=== PATIENT | female | born 1930 | race Two or more races ===

== ENCOUNTER 2017-09-23 19:16 | Inpatient (IN) | payer MEDICARE, OTHER ==
[2017-09-23 19:45] LABS: ADD MAN DIFF? NO
[2017-09-23 19:51] LABS: BASO # 0.1 x10^3/uL (0.0-0.2); BASO % 1 % (0-3); EOS # 0.2 x10^3/uL (0.0-0.7); EOS % 2 % (0-3); LYMPH % 10 % (24-48); MEAN CORPUSCULAR HEMOGLOBIN 31 pg (25-35); MEAN CORPUSCULAR HGB CONC 35 g/dL (31-37); MEAN CORPUSCULAR VOLUME 88 fL (79-100); MONO # 0.4 x10^3/uL (0.0-1.1); MONO % 5 % (0-9); NEUT # 8.1 x10^3uL (1.8-7.7); NEUT % 83 % (31-73); PLATELET COUNT 290 x10^3/uL (140-400); RED BLOOD COUNT 2.24 x10^6/uL (3.50-5.40); RED CELL DISTRIBUTION WIDTH 13.9 % (11.5-14.5); WHITE BLOOD COUNT 9.7 x10^3/uL (4.0-11.0)
[2017-09-23 19:54] LABS: HEMATOCRIT 19.8 % (36.0-47.0); HEMOGLOBIN 6.8 g/dL (12.0-15.5)
[2017-09-23 19:57] LABS: ANION GAP 9 (6-14); BLOOD UREA NITROGEN 57 mg/dL (7-20); BUN/CREATININE RATIO 30 (6-20); CALCIUM 7.6 mg/dL (8.5-10.1); CARBON DIOXIDE 25 mmol/L (21-32); CHLORIDE 104 mmol/L (98-107); CREATININE 1.9 mg/dL (0.6-1.0); GFR 25.1; GLUCOSE 251 mg/dL (70-99); POTASSIUM 4.3 mmol/L (3.5-5.1); SODIUM 138 mmol/L (136-145)
[2017-09-23 20:02] LABS: INR 2.4 (0.8-1.1); PROTHROMBIN TIME PATIENT 25.7 SEC (11.7-14.0)
[2017-09-23 20:03] LABS: ALBUMIN 2.2 g/dL (3.4-5.0); ALBUMIN/GLOBULIN RATIO 0.6 (1.0-1.7); ALK PHOS 106 U/L (46-116); ALT (SGPT) 17 U/L (14-59); AST (SGOT) 19 U/L (15-37); MAGNESIUM 2.1 mg/dL (1.8-2.4); TOTAL BILIRUBIN 0.4 mg/dL (0.2-1.0); TOTAL PROTEIN 5.8 g/dL (6.4-8.2)
[2017-09-23 20:09] LABS: NT-PRO BNP 13984 pg/mL (0-449)
[2017-09-23] MEDS ORDERED: ACETAMINOPHEN 325 MG TABLET. PO ×2 (20:30→22:30)
[2017-09-23 20:32] LABS: FECAL OB PT POSITIVE (NEG); NEG OBC FOB NEG; POS OBC FOB POS
[2017-09-23 20:33] LABS: BILIRUBIN,URINE NEGATIVE (NEG); CLARITY,URINE CLOUDY; COLOR,URINE YELLOW; GLUCOSE,URINE NEGATIVE (NEG); NITRITE,URINE NEGATIVE (NEG); PH,URINE 5.5; PROTEIN,URINE 100 mg/dL (NEG-TRACE); UROBILINOGEN,URINE 0.2 mg/dL (0.2 mg/dL)
[2017-09-23 20:41] LABS: BACTERIA,URINE FEW /HPF (0-FEW); HYALINE CASTS, URINE OCCASIONAL /HPF; RBC,URINE OCC /HPF (0-2)
[2017-09-23 22:24] LABS: POC GLUCOSE 191 mg/dL (70-99)
[2017-09-23] MEDS ORDERED: NITROGLYCERIN SUBLINGUAL 0.4 MG BOTTLE OF 25. SL (22:30)
[2017-09-23] MEDS ORDERED: DEXTROSE 50% 25 GM / 50ML DISP.SYRIN. IV (22:45)
[2017-09-23] MEDS: PREGABALIN 50 MG CAPSULE PO (23:51)
[2017-09-23] MEDS: AMITRIPTYLINE HCL 50 MG TABLET PO (23:51)
[2017-09-23] MEDS: cefTRIAXone IV Push 1 GM VIAL. IVP (23:52)
[2017-09-24] MEDS: FUROSEMIDE 40 MG/4 ML VIAL. IVP (00:07)
[2017-09-24 01:03] LABS: IMMEDIATE SPIN CROSSMATCH 1 2
[2017-09-24] MEDS: FUROSEMIDE 20 MG/2 ML VIAL. IVP ×4 (04:08→21:02)
[2017-09-24] MEDS: LEVOTHYROXINE 50 MCG TABLET PO (06:29)
[2017-09-24] MEDS ORDERED: CARVEDILOL 6.25 MG TABLET. PO (08:00)
[2017-09-24 08:12] LABS: ADD MAN DIFF? NO
[2017-09-24 08:24] LABS: BASO % 1 % (0-3); EOS # 0.3 x10^3/uL (0.0-0.7); EOS % 3 % (0-3); HEMATOCRIT 28.6 % (36.0-47.0); LYMPH # 1.3 x10^3/uL (1.0-4.8); LYMPH % 14 % (24-48); MEAN CORPUSCULAR HEMOGLOBIN 31 pg (25-35); MEAN CORPUSCULAR HGB CONC 35 g/dL (31-37); MEAN CORPUSCULAR VOLUME 89 fL (79-100); MONO # 0.5 x10^3/uL (0.0-1.1); MONO % 5 % (0-9); NEUT # 7.2 x10^3uL (1.8-7.7); NEUT % 77 % (31-73); PLATELET COUNT 293 x10^3/uL (140-400); RED BLOOD COUNT 3.23 x10^6/uL (3.50-5.40); RED CELL DISTRIBUTION WIDTH 13.7 % (11.5-14.5); WHITE BLOOD COUNT 9.2 x10^3/uL (4.0-11.0)
[2017-09-24] MEDS: LACTOBACILLUS RHAMNOSUS GG 1 CAPSULE. PO ×2 (08:24→21:01)
[2017-09-24] MEDS: FERROUS SULFATE 325 MG TABLET. PO (08:24)
[2017-09-24] MEDS: POTASSIUM CHLORIDE 20 MEQ TABLET.ER. PO (08:24)
[2017-09-24] MEDS: CALCIUM CARB/VIT D3 500/200 TABLET. PO ×2 (08:24→17:46)
[2017-09-24] MEDS: PREGABALIN 50 MG CAPSULE PO ×2 (08:25→21:01)
[2017-09-24] MEDS: ANASTROZOLE 1 MG TABLET PO (08:26)
[2017-09-24] MEDS: CLOPIDOGREL BISULFATE 75 MG TABLET PO (08:28)
[2017-09-24] MEDS: ASPIRIN ENTERIC COATED 81 MG TABLET.DR. PO (08:28)
[2017-09-24 08:47] LABS: MAGNESIUM 2.2 mg/dL (1.8-2.4)
[2017-09-24] MEDS: INSULIN LISPRO 300 UNITS/3 ML INSULN.PEN. SQ ×6 (08:49→17:55)
[2017-09-24 08:54] LABS: ANION GAP 9 (6-14); BLOOD UREA NITROGEN 53 mg/dL (7-20); CALCIUM 7.7 mg/dL (8.5-10.1); CARBON DIOXIDE 26 mmol/L (21-32); CHLORIDE 103 mmol/L (98-107); CHOLESTEROL 117 mg/dL (0-200); CREATININE 1.5 mg/dL (0.6-1.0); GLUCOSE 214 mg/dL (70-99); HDLC 34 mg/dL (40-60); LDLC 51 mg/dL (0-100); NON-HDL CHOLESTEROL 83 mg/dL (0-129); POTASSIUM 4.6 mmol/L (3.5-5.1); SODIUM 138 mmol/L (136-145); TRIGLYCERIDES 162 mg/dL (0-150); VLDLC 32 mg/dL (0-40)
[2017-09-24 08:55] LABS: CHOLESTEROL/HDL RATIO 3.4
[2017-09-24 08:59] LABS: TROPONINI 0.138 ng/mL (0.000-0.055)
[2017-09-24] MEDS ORDERED: DOCUSATE SODIUM 100 MG CAPSULE. PO (09:00)
[2017-09-24] MEDS: INSULIN GLARGINE 300 UNITS/3 ML INSULN.PEN. SQ (09:00)
[2017-09-24] MEDS ORDERED: BUMETANIDE 1 MG TABLET. PO (09:00)
[2017-09-24 09:21] LABS: POC GLUCOSE 205 mg/dL (70-99)
[2017-09-24] MEDS: METOPROLOL TART IMMED RELEASE 25 MG TABLET. PO (09:53)
[2017-09-24] MEDS: LOSARTAN POTASSIUM 50 MG TABLET. PO (09:54)
[2017-09-24] MEDS: ISOSORBIDE MONONITRATE ER 30 MG TAB.ER.24H PO (09:55)
[2017-09-24 10:58] LABS: THYROID STIM HORMONE (TSH) 8.585 uIU/mL (0.358-3.74)
[2017-09-24] MEDS: TAMSULOSIN 0.4 MG CAP.ER.24H. PO (12:21)
[2017-09-24] MEDS: LINAGLIPTIN 5 MG TABLET PO (12:22)
[2017-09-24] MEDS: FOLIC ACID 1 MG TABLET. PO (12:22)
[2017-09-24] MEDS: SENNOSIDES/DOCUSATE 8.6/50MG TABLET. PO (12:22)
[2017-09-24] MEDS: ASCORBIC ACID 500 MG TABLET PO ×2 (12:22→21:01)
[2017-09-24] MEDS: VITAMIN B12,B9,B6 COMPLEX 1 TABLET. PO (12:22)
[2017-09-24 12:36] LABS: POC GLUCOSE 179 mg/dL (70-99)
[2017-09-24 14:14] LABS: TROPONINI 0.148 ng/mL (0.000-0.055)
[2017-09-24] MEDS: WARFARIN 2.5 MG TABLET. PO (16:31)
[2017-09-24 17:41] LABS: POC GLUCOSE 167 mg/dL (70-99)
[2017-09-24] MEDS: POTASSIUM CHLORIDE 10 MEQ TABLET.ER. PO (17:46)
[2017-09-24] MEDS: AMITRIPTYLINE HCL 50 MG TABLET PO (21:01)
[2017-09-24] MEDS: ATORVASTATIN CALCIUM 20 MG TABLET PO (21:01)
[2017-09-24] MEDS: FAMOTIDINE 20 MG TABLET. PO (21:01)
[2017-09-24 21:02] LABS: POC GLUCOSE 99 mg/dL (70-99)
[2017-09-24] MEDS: cefTRIAXone IV Push 1 GM VIAL. IVP (23:00)
[2017-09-25] MEDS: LEVOTHYROXINE 50 MCG TABLET PO (06:00)
[2017-09-25 07:54] LABS: POC GLUCOSE 138 mg/dL (70-99)
[2017-09-25] MEDS: INSULIN LISPRO 300 UNITS/3 ML INSULN.PEN. SQ ×6 (08:00→16:48)
[2017-09-25 08:18] LABS: ADD MAN DIFF? NO
[2017-09-25 08:24] LABS: BASO # 0.1 x10^3/uL (0.0-0.2); BASO % 1 % (0-3); EOS # 0.3 x10^3/uL (0.0-0.7); EOS % 3 % (0-3); HEMATOCRIT 28.2 % (36.0-47.0); HEMOGLOBIN 9.8 g/dL (12.0-15.5); LYMPH # 1.2 x10^3/uL (1.0-4.8); LYMPH % 12 % (24-48); MEAN CORPUSCULAR HEMOGLOBIN 31 pg (25-35); MEAN CORPUSCULAR HGB CONC 35 g/dL (31-37); MEAN CORPUSCULAR VOLUME 89 fL (79-100); MONO # 0.5 x10^3/uL (0.0-1.1); MONO % 5 % (0-9); NEUT # 8.3 x10^3uL (1.8-7.7); NEUT % 80 % (31-73); PLATELET COUNT 306 x10^3/uL (140-400); RED BLOOD COUNT 3.16 x10^6/uL (3.50-5.40); RED CELL DISTRIBUTION WIDTH 14.3 % (11.5-14.5); WHITE BLOOD COUNT 10.4 x10^3/uL (4.0-11.0)
[2017-09-25 08:32] LABS: INR 2.1 (0.8-1.1); PROTHROMBIN TIME PATIENT 22.7 SEC (11.7-14.0)
[2017-09-25 08:44] LABS: ANION GAP 5 (6-14); BLOOD UREA NITROGEN 47 mg/dL (7-20); CALCIUM 8.1 mg/dL (8.5-10.1); CARBON DIOXIDE 29 mmol/L (21-32); CHLORIDE 105 mmol/L (98-107); CREATININE 1.5 mg/dL (0.6-1.0); GLUCOSE 138 mg/dL (70-99); POTASSIUM 4.5 mmol/L (3.5-5.1); SODIUM 139 mmol/L (136-145)
[2017-09-25] MEDS: ASPIRIN ENTERIC COATED 81 MG TABLET.DR. PO (08:47)
[2017-09-25] MEDS: POTASSIUM CHLORIDE 10 MEQ TABLET.ER. PO ×2 (08:48→16:16)
[2017-09-25] MEDS: FERROUS SULFATE 325 MG TABLET. PO (08:48)
[2017-09-25] MEDS: TAMSULOSIN 0.4 MG CAP.ER.24H. PO (08:48)
[2017-09-25] MEDS: CLOPIDOGREL BISULFATE 75 MG TABLET PO (08:48)
[2017-09-25] MEDS: FOLIC ACID 1 MG TABLET. PO (08:48)
[2017-09-25] MEDS: LINAGLIPTIN 5 MG TABLET PO (08:48)
[2017-09-25] MEDS: SENNOSIDES/DOCUSATE 8.6/50MG TABLET. PO (08:48)
[2017-09-25] MEDS: LOSARTAN POTASSIUM 50 MG TABLET. PO (08:49)
[2017-09-25] MEDS: LACTOBACILLUS RHAMNOSUS GG 1 CAPSULE. PO ×2 (08:49→21:02)
[2017-09-25] MEDS: PREGABALIN 50 MG CAPSULE PO ×2 (08:49→21:01)
[2017-09-25] MEDS: METOPROLOL TART IMMED RELEASE 25 MG TABLET. PO (08:49)
[2017-09-25] MEDS: VITAMIN B12,B9,B6 COMPLEX 1 TABLET. PO (08:50)
[2017-09-25] MEDS: FUROSEMIDE 20 MG/2 ML VIAL. IVP ×3 (08:50→21:02)
[2017-09-25] MEDS: ISOSORBIDE MONONITRATE ER 30 MG TAB.ER.24H PO (08:50)
[2017-09-25] MEDS: CALCIUM CARB/VIT D3 500/200 TABLET. PO ×2 (08:50→16:54)
[2017-09-25] MEDS: ANASTROZOLE 1 MG TABLET PO (08:59)
[2017-09-25] MEDS: INSULIN GLARGINE 300 UNITS/3 ML INSULN.PEN. SQ (09:00)
[2017-09-25] MEDS ORDERED: POLYETHYLENE GLYCOL 3350 17 GM PACKET. PO (09:00)
[2017-09-25] MEDS: ASCORBIC ACID 500 MG TABLET PO ×2 (09:47→21:01)
[2017-09-25 11:48] LABS: POC GLUCOSE 187 mg/dL (70-99)
[2017-09-25] MEDS: WARFARIN 2.5 MG TABLET. PO (16:16)
[2017-09-25 17:32] LABS: POC GLUCOSE 63 mg/dL (70-99)
[2017-09-25 17:32] LABS: POC GLUCOSE 51 mg/dL (70-99)
[2017-09-25] MEDS: AMITRIPTYLINE HCL 50 MG TABLET PO (21:01)
[2017-09-25] MEDS: ATORVASTATIN CALCIUM 20 MG TABLET PO (21:01)
[2017-09-25] MEDS: FAMOTIDINE 20 MG TABLET. PO (21:01)
[2017-09-25 21:04] LABS: POC GLUCOSE 179 mg/dL (70-99)
[2017-09-25] MEDS: cefTRIAXone IV Push 1 GM VIAL. IVP (22:52)
[2017-09-25] MEDS: MAG HYDROX/ALUMINUM HYD/SIMETH 30 ML ORAL.SUSP PO (23:05)
[2017-09-26 05:16] LABS: ANION GAP 6 (6-14); BLOOD UREA NITROGEN 45 mg/dL (7-20); CALCIUM 8.2 mg/dL (8.5-10.1); CARBON DIOXIDE 29 mmol/L (21-32); CHLORIDE 102 mmol/L (98-107); CREATININE 1.4 mg/dL (0.6-1.0); GFR 35.7; GLUCOSE 305 mg/dL (70-99); POTASSIUM 4.3 mmol/L (3.5-5.1); SODIUM 137 mmol/L (136-145)
[2017-09-26] MEDS: LEVOTHYROXINE 50 MCG TABLET PO (06:27)
[2017-09-26 08:17] LABS: POC GLUCOSE 322 mg/dL (70-99)
[2017-09-26] MEDS: INSULIN LISPRO 300 UNITS/3 ML INSULN.PEN. SQ ×6 (08:33→17:00)
[2017-09-26] MEDS: INSULIN GLARGINE 300 UNITS/3 ML INSULN.PEN. SQ (08:35)
[2017-09-26] MEDS: METOPROLOL TART IMMED RELEASE 25 MG TABLET. PO (08:37)
[2017-09-26] MEDS: VITAMIN B12,B9,B6 COMPLEX 1 TABLET. PO (08:37)
[2017-09-26] MEDS: PREGABALIN 50 MG CAPSULE PO ×2 (08:37→21:08)
[2017-09-26] MEDS: SENNOSIDES/DOCUSATE 8.6/50MG TABLET. PO (08:37)
[2017-09-26] MEDS: FERROUS SULFATE 325 MG TABLET. PO (08:38)
[2017-09-26] MEDS: ANASTROZOLE 1 MG TABLET PO (08:38)
[2017-09-26] MEDS: LACTOBACILLUS RHAMNOSUS GG 1 CAPSULE. PO ×2 (08:38→21:08)
[2017-09-26] MEDS: TAMSULOSIN 0.4 MG CAP.ER.24H. PO (08:38)
[2017-09-26] MEDS: ASPIRIN ENTERIC COATED 81 MG TABLET.DR. PO (08:39)
[2017-09-26] MEDS: FOLIC ACID 1 MG TABLET. PO (08:39)
[2017-09-26] MEDS: CALCIUM CARB/VIT D3 500/200 TABLET. PO ×2 (08:39→17:42)
[2017-09-26] MEDS: CLOPIDOGREL BISULFATE 75 MG TABLET PO (08:39)
[2017-09-26] MEDS: LOSARTAN POTASSIUM 50 MG TABLET. PO (08:39)
[2017-09-26] MEDS: POTASSIUM CHLORIDE 10 MEQ TABLET.ER. PO ×2 (08:40→17:43)
[2017-09-26] MEDS: ISOSORBIDE MONONITRATE ER 30 MG TAB.ER.24H PO (08:40)
[2017-09-26] MEDS: FUROSEMIDE 20 MG/2 ML VIAL. IVP (08:42)
[2017-09-26 10:27] LABS: INR 1.5 (0.8-1.1); PROTHROMBIN TIME PATIENT 17.8 SEC (11.7-14.0)
[2017-09-26 12:47] LABS: POC GLUCOSE 176 mg/dL (70-99)
[2017-09-26] MEDS: ASCORBIC ACID 500 MG TABLET PO ×2 (12:56→21:08)
[2017-09-26] MEDS: LINAGLIPTIN 5 MG TABLET PO (12:57)
[2017-09-26] MEDS: WARFARIN 3 MG TABLET. PO (16:49)
[2017-09-26] MEDS: FUROSEMIDE 40 MG/4 ML VIAL. IVP (16:50)
[2017-09-26 17:27] LABS: POC GLUCOSE 69 mg/dL (70-99)
[2017-09-26 20:55] LABS: POC GLUCOSE 117 mg/dL (70-99)
[2017-09-26] MEDS: ATORVASTATIN CALCIUM 20 MG TABLET PO (21:08)
[2017-09-26] MEDS: AMITRIPTYLINE HCL 50 MG TABLET PO (21:08)
[2017-09-26] MEDS: FAMOTIDINE 20 MG TABLET. PO (21:08)
[2017-09-27] MEDS: LEVOTHYROXINE 50 MCG TABLET PO (06:35)
[2017-09-27 07:37] LABS: POC GLUCOSE 226 mg/dL (70-99)
[2017-09-27] MEDS: FUROSEMIDE 80 MG TABLET. PO (08:10)
[2017-09-27] MEDS: LACTOBACILLUS RHAMNOSUS GG 1 CAPSULE. PO (08:10)
[2017-09-27] MEDS: CLOPIDOGREL BISULFATE 75 MG TABLET PO (08:10)
[2017-09-27] MEDS: ASPIRIN ENTERIC COATED 81 MG TABLET.DR. PO (08:10)
[2017-09-27] MEDS: SENNOSIDES/DOCUSATE 8.6/50MG TABLET. PO (08:11)
[2017-09-27] MEDS: FERROUS SULFATE 325 MG TABLET. PO (08:11)
[2017-09-27] MEDS: LOSARTAN POTASSIUM 50 MG TABLET. PO (08:11)
[2017-09-27] MEDS: METOPROLOL TART IMMED RELEASE 25 MG TABLET. PO (08:11)
[2017-09-27] MEDS: VITAMIN B12,B9,B6 COMPLEX 1 TABLET. PO (08:11)
[2017-09-27] MEDS: TAMSULOSIN 0.4 MG CAP.ER.24H. PO (08:12)
[2017-09-27] MEDS: POTASSIUM CHLORIDE 10 MEQ TABLET.ER. PO (08:12)
[2017-09-27] MEDS: FOLIC ACID 1 MG TABLET. PO (08:12)
[2017-09-27] MEDS: ASCORBIC ACID 500 MG TABLET PO (08:12)
[2017-09-27] MEDS: PREGABALIN 50 MG CAPSULE PO (08:12)
[2017-09-27] MEDS: ISOSORBIDE MONONITRATE ER 30 MG TAB.ER.24H PO (08:12)
[2017-09-27 08:15] LABS: INR 1.4 (0.8-1.1); PROTHROMBIN TIME PATIENT 16.8 SEC (11.7-14.0)
[2017-09-27] MEDS: ANASTROZOLE 1 MG TABLET PO (08:15)
[2017-09-27] MEDS: INSULIN LISPRO 300 UNITS/3 ML INSULN.PEN. SQ ×4 (08:20→11:46)
[2017-09-27] MEDS: INSULIN GLARGINE 300 UNITS/3 ML INSULN.PEN. SQ (08:20)
[2017-09-27] MEDS: LINAGLIPTIN 5 MG TABLET PO (11:44)
[2017-09-27] MEDS: CALCIUM CARB/VIT D3 500/200 TABLET. PO (11:44)
[2017-09-27 11:45] LABS: POC GLUCOSE 225 mg/dL (70-99)
[2017-09-27] MEDS: WARFARIN 3 MG TABLET. PO (15:15)
== END 2017-09-27 15:40 | disposition home health service (06) | DRG 280 ==
LOC: ER 19:16 → 2 SOUTH 20:20
PROC: 30233N1 Transfusion of Nonautologous Red Blood Cells into Peripheral Vein, Percutaneous Approach (ICD-10-PCS; principal; 2017-09-24)
DX: I21.A1 Myocardial infarction type 2 (principal); I50.23 Acute on chronic systolic (congestive) heart failure; N17.9 Acute kidney failure, unspecified; I25.10 Atherosclerotic heart disease of native coronary artery without angina pectoris; D63.8 Anemia in other chronic diseases classified elsewhere; K21.9 Gastro-esophageal reflux disease without esophagitis; I11.0 Hypertensive heart disease with heart failure; E78.00 Pure hypercholesterolemia, unspecified; E11.9 Type 2 diabetes mellitus without complications; G89.29 Other chronic pain; Z96.642 Presence of left artificial hip joint; E78.5 Hyperlipidemia, unspecified; F32.9 Major depressive disorder, single episode, unspecified; H40.9 Unspecified glaucoma; W18.30XA Fall on same level, unspecified, initial encounter; E03.9 Hypothyroidism, unspecified; F41.8 Other specified anxiety disorders; F41.9 Anxiety disorder, unspecified; Z79.01 Long term (current) use of anticoagulants; Z85.3 Personal history of malignant neoplasm of breast; Z90.12 Acquired absence of left breast and nipple; Z79.4 Long term (current) use of insulin; Z89.422 Acquired absence of other left toe(s); Z89.421 Acquired absence of other right toe(s)
CPT/HCPCS: 36415; 51702; 71045; 71046; 80048; 80053; 80061; 81001; 82274; 82962; 83735; 83880; 84443; 84484; 85025; 85610; 86850; 86900; 86901; 86920; 87086; 93005; 93306; 93970; 97110-GP; 97162-GP; 97530-GP; 99285-25; J0696; J1815; J1940; P9016

== ENCOUNTER → 2017-10-07 | Outpatient (CLI) | payer MEDICARE, OTHER | END | disposition home or self-care (01) | LOC: RAD 14:03 | DX: I13.0 Hypertensive heart and chronic kidney disease with heart failure and stage 1 through stage 4 chronic kidney disease, or unspecified chronic kidney disease (principal); E11.22 Type 2 diabetes mellitus with diabetic chronic kidney disease; I50.22 Chronic systolic (congestive) heart failure; N18.3 Chronic kidney disease, stage 3 (moderate); J98.11 Atelectasis; E78.5 Hyperlipidemia, unspecified; E03.9 Hypothyroidism, unspecified | CPT/HCPCS: 71046 ==